=== PATIENT | male | born 1985 | race Two or more races ===

== ENCOUNTER 2018-10-07 15:32 | Emergency (ER) | payer OTHER ==
[~2018-10-07] VITALS: Ht 180.3 cm; Wt 76.7 kg
[~2018-10-07 15:32] MED LIST: IBUPROFEN600 MG ORAL
[2018-10-07] MEDS ORDERED: BENZTROPINE ME0.5 MG PO (15:45)
[2018-10-07] MEDS ORDERED: RISPERDAL2 MG ORAL (15:45)
[2018-10-07] MEDS ORDERED: OLANZAPINE15 MG ORAL (15:45)
[2018-10-07] MEDS ORDERED: VITAMIN D400 INTLU ORAL (15:45)
[2018-10-07] MEDS ORDERED: OMEPRAZOLE40 M1 ORAL (15:45)
[2018-10-07] MEDS ORDERED: MULTIVITAMINS1 EAC2 ORAL (15:45)
[2018-10-07] MEDS ORDERED: PAROXETINE HCL25 MG ORAL (15:45)
[2018-10-07 16:25] VITALS: BP 104/65
[2018-10-07 16:30] LABS: BASOPHILS % (AUTO) 2.5 % (0.0-2.0); EOSINOPHILS % (AUTO) 6.3 % (0.0-3.0); HEMATOCRIT 37.1 % (42.0-52.0); LYMPHOCYTES % (AUTO) 23.8 % (20.0-45.0); MEAN CORPUSCULAR VOLUME 80 FL (80-99); NEUTROPHILS % (AUTO) 57.4 % (45.0-75.0); PLATELET COUNT 155 K/UL (150-450); RED BLOOD COUNT 4.61 M/UL (4.70-6.10); RED CELL DISTRIBUTION WIDTH 11.1 % (11.6-14.8)
[2018-10-07 16:47] LABS: ANION GAP 7 mmol/L (5-15); BLOOD UREA NITROGEN 9 mg/dL (7-18); CALCIUM 8.9 MG/DL (8.5-10.1); CARBON DIOXIDE 28 MMOL/L (21-32); CHLORIDE 105 MMOL/L (98-107); CREATININE 0.8 MG/DL (0.55-1.30); POTASSIUM 3.9 MMOL/L (3.5-5.1); SODIUM 140 MMOL/L (136-145)
[2018-10-07 16:52] LABS: ALANINE AMINOTRANSFERASE 37 U/L (12-78); ALBUMIN 4.1 G/DL (3.4-5.0); ALBUMIN/GLOBULIN RATIO 1.6 (1.0-2.7); ALKALINE PHOSPHATASE 67 U/L (46-116); ASPARTATE AMINO TRANSFERASE 26 U/L (15-37); BILIRUBIN,TOTAL 0.8 MG/DL (0.2-1.0)
--- NOTE | 2018-10-07 17:46 | Emergency Room Report ---
History of Present Illness General Chief Complaint: Gastrointestinal Bleed Source: Patient, Caregiver Present Illness HPI This patient presents from an assisted living facility/alf. He has a history of mental retardation. He has a long history of difficulty having bowel movements. He has been seen multiple times by physicians. He spends about an hour and a half having a bowel movement. He is on a laxative. He has been evaluated extensively for this previously. He presents today because he noted there was some streaky blood in his stool. He denies pain. He denies chest pain or shortness of breath. He denies abdominal pain or rectal pain. He denies dysuria or hematuria. He has no other complaints. Allergies: Coded Allergies: No Known Allergies (Unverified , 01/14/12) Patient History Past Medical History: see triage record, HTN, GERD, other - Developmental delay Social History: Denies: smoking, alcohol use, drug use Reviewed Nursing Documentation: PMH: Agreed; PSxH: Agreed Nursing Documentation-PMH Hx Hypertension: Yes Hx Neurological Problems: Yes Review of Systems All Other Systems: negative except mentioned in HPI Physical Exam Vital Signs Date Time Temp Pulse Resp B/P (MAP) Pulse Ox O2 Delivery O2 Flow Rate FiO2 10/07/18 15:38 97.9 79 19 100/61 (74) 95 Room Air Sp02 EP Interpretation: reviewed, normal General Appearance: no apparent distress, alert, GCS 15, non-toxic Head: normocephalic, atraumatic Eyes: bilateral eye normal inspection, bilateral eye PERRL ENT: hearing grossly normal, normal pharynx, no angioedema, normal voice Neck: full range of motion, supple/symm/no masses Respiratory: chest non-tender, lungs clear, normal breath sounds, no respiratory distress, no retraction, no accessory muscle use, speaking full sentences Cardiovascular #1: regular rate, rhythm, no edema Gastrointestinal: normal bowel sounds, non tender, soft, non-distended, no guarding, no rebound Rectal: hemorrhoids - Very small hemorrhoid at 5 O'clock. OTW wnl. Musculoskeletal: back normal, gait/station normal, normal range of motion, non- tender Neurologic: alert, oriented x3, responsive, motor strength/tone normal, sensory intact, speech normal Psychiatric: mood/affect normal Skin: normal color, no rash, warm/dry, well hydrated Medical Decision Making Diagnostic Impression: Primary Impression: Hemorrhoid Additional Impression: Constipation ER Course This patient is found to have a small hemorrhoid. Patient has a known history of constipation and difficulty with bowel movements. He has had a thorough work -up by other physicians. The caregiver caring for the patient states that he is using his ethylene glycol. He would prefer not to have a laxative at this time as that would cause more difficulty for the patient. Overall, the evaluation is benign. Patient does have a very slight anemia. I suspect that this is unrelated to the current symptoms. However, I did print out these labs and the caregiver with the patient states he can follow-up closely with his primary care physician to make sure that there is no decline in his hemoglobin. The caregiver was given very close return precautions and follow-up instructions. Laboratory Tests Test 10/07/18 16:12 White Blood Count 6.0 K/UL (4.8-10.8) Red Blood Count 4.61 M/UL (4.70-6.10) L Hemoglobin 13.0 G/DL (14.2-18.0) L Hematocrit 37.1 % (42.0-52.0) L Mean Corpuscular Volume 80 FL (80-99) Mean Corpuscular Hemoglobin 28.1 PG (27.0-31.0) Mean Corpuscular Hemoglobin Concent 35.0 G/DL (32.0-36.0) Red Cell Distribution Width 11.1 % (11.6-14.8) L Platelet Count 155 K/UL (150-450) Mean Platelet Volume 6.1 FL (6.5-10.1) L Neutrophils (%) (Auto) 57.4 % (45.0-75.0) Lymphocytes (%) (Auto) 23.8 % (20.0-45.0) Monocytes (%) (Auto) 10.0 % (1.0-10.0) Eosinophils (%) (Auto) 6.3 % (0.0-3.0) H Basophils (%) (Auto) 2.5 % (0.0-2.0) H Prothrombin Time 10.8 SEC (9.30-11.50) Prothrombin Time INR 1.0 (0.9-1.1) PTT 26 SEC (23-33) Sodium Level 140 MMOL/L (136-145) Potassium Level 3.9 MMOL/L (3.5-5.1) Chloride Level 105 MMOL/L (98-107) Carbon Dioxide Level 28 MMOL/L (21-32) Anion Gap 7 mmol/L (5-15) Blood Urea Nitrogen 9 mg/dL (7-18) Creatinine 0.8 MG/DL (0.55-1.30) Estimate Glomerular Filtration Rate > 60 mL/min (>60) Glucose Level 92 MG/DL (74-106) Calcium Level 8.9 MG/DL (8.5-10.1) Total Bilirubin 0.8 MG/DL (0.2-1.0) Aspartate Amino Transferase (AST) 26 U/L (15-37) Alanine Aminotransferase (ALT) 37 U/L (12-78) Alkaline Phosphatase 67 U/L (46-116) Total Protein 6.6 G/DL (6.4-8.2) Albumin 4.1 G/DL (3.4-5.0) Globulin 2.5 g/dL Albumin/Globulin Ratio 1.6 (1.0-2.7) Last Vital Signs Date Time Temp Pulse Resp B/P (MAP) Pulse Ox O2 Delivery O2 Flow Rate FiO2 10/07/18 16:25 97.9 84 20 104/65 98 Room Air Status: improved Disposition: HOME, SELF-CARE Condition: Improved Referrals: NON PHYSICIAN (PCP) Nova Cardona DO Oct 07, 2018 17:46
[2018-10-07 17:53] VITALS: BP_SYST 104; BP_SYST 112; BP_DIAS 64; BP_DIAS 65
== END 2018-10-07 17:53 | disposition home or self-care (01) ==
LOC: EMR 17:20
DX: K64.9 Unspecified hemorrhoids (principal); K59.00 Constipation, unspecified; I10 Essential (primary) hypertension; K21.9 Gastro-esophageal reflux disease without esophagitis; F79 Unspecified intellectual disabilities
CPT/HCPCS: 36415; 80053; 85025; 85610; 85730; 99283